=== PATIENT | male | born 1965 | race Caucasian/White ===

== ENCOUNTER 2016-09-18 00:49 | Inpatient (IN) | payer OTHER ==
[~2016-09-18] VITALS: Ht 175.3 cm; Wt 84.9 kg
[~2016-09-18 00:49] MED LIST: ABILIFY10 MG PO; ABILIFY2 MG PO; ACAMPROSATE CA333 MG PO; ACTOS45 MG PO; AMARYL4 MG PO; ANTABUSE250 MG PO; ATIVAN1 MG PO; BUSPAR10 MG PO; CAMPRAL333 MG PO; COUMADIN,JANTOVE5 MG PO; COUMADIN5 M1 PO; COUMADIN5 MG PO; Coumadin dosing per PO; DEPAKOTE ER (E500 MG PO; DEPAKOTE500 MG PO; DESYREL 150 MG150 MG PO; DESYREL100 MG PO; DESYREL300 MG PO; DIABETA,MICRONAS5 MG PO; DISULFIRAM250 MG PO; Depakote ER (Extende PO; Diabeta,Micronase PO; EFFEXOR XR150 MG PO; ENOXAPARIN100 MG/1 M SC; FLEXERIL10 MG PO; FUROSEMIDE40 MG PO; GEODON80 MG PO; GLIPIZIDE5 MG PO; HYGROTON25 MG PO; LANTUS 3 M100 UNITS/ SC; LANTUS 3 M100 UNITS1 SC; LASIX40 MG PO; LEVEMIR FL100 UNITS/ SC; LEXAPRO20 MG PO; LISINOPRIL-HCT1 EACH PO; LISINOPRIL10 MG PO; LISINOPRIL20 MG PO; LOPRESSOR25 MG PO; LOVENOX80 MG/0.8 SC; METOPROLOL SUCC25 MG PO; MORPHINE SULFAT15 M1 PO; NEURONTIN100 MG PO; NOVOLIN 70100 UNIT/1 SQ; NOVOLOG MI100 UNIT/3 IV; NOVOLOG MI100 UNIT/M SC; NOVOLOG100 UNIT/2 SQ; ONGLYZA5 MG PO; OXYCODONE HCL5 M1 PO; PERCOCET 5/31 TABLET PO; SIMVASTATIN40 MG PO; SIMVASTATIN80 MG PO; SPECTAZOLE15 GM PO; THORAZINE25 MG PO; THORAZINE50 MG PO; TIZANIDINE HCL4 MG PO; TRAZODONE HCL100 MG PO; TRAZODONE HCL150 MG PO; Toprol XL PO; UNKNOWN MEDICATIONS; VENLAFAXINE HC150 M1 PO; VENLAFAXINE HCL75 M3 PO; WARFARIN SODIUM5 MG PO; WELLBUTRIN SR150 MG PO; WELLBUTRIN XL300 MG PO; Wellbutrin XL PO; ZESTRIL,PRINIVI10 M1 PO; ZESTRIL,PRINIVI10 MG PO; ZIPRASIDONE HCL80 MG PO; ZOCOR80 MG PO; Zocor PO
[2016-09-18 01:46] LABS: HEMATOCRIT 34.2 % (38.0-50.0); MCH 31.5 PG (29.0-34.0); MCV 87.5 FL (86-99); PLATELET COUNT 282 K/uL (156-360); RBC DIS.WIDTH-SD 40.7 % (39-53); RED BLOOD COUNT 3.91 M/uL (4.00-5.50); WHITE BLOOD COUNT 5.4 K/uL (4.1-10.2)
[2016-09-18 01:53] LABS: CHLORIDE 107 mEq/L (99-109); POTASSIUM 3.4 mEq/L (3.7-5.4); SODIUM 143 mEq/L (136-147)
[2016-09-18 01:56] LABS: GLUCOSE 242 mg/dL (70-99)
[2016-09-18 01:57] LABS: ANION GAP 17 MEQ/L (2-14)
[2016-09-18 01:58] LABS: SERUM ETHYL ALCOHOL 250 mg/dL
[2016-09-18 01:59] LABS: GFR ESTIMATE (CALCULATED) > 59 mL/min/
[2016-09-18 02:01] LABS: UREA NITROGEN (BUN) 16 mg/dL (9-23)
[2016-09-18 02:02] LABS: SALICYLATE < 5.0 MG/DL (15-30)
[2016-09-18] MEDS ORDERED: ZYPREXA10 MG PO (11:01)
[2016-09-18] MEDS ORDERED: EFFEXOR XR150 MG PO (11:01)
[2016-09-18] MEDS ORDERED: TRAZODONE HCL150 MG PO (11:02)
[2016-09-18] MEDS ORDERED: LISINOPRIL-HCT1 EACH PO (11:02)
[2016-09-18] MEDS ORDERED: TRESIBA FL100 UNIT/1 SC (11:02)
[2016-09-18] MEDS ORDERED: GLIMEPIRIDE4 MG PO (11:02)
[2016-09-18 14:22] LABS: AMPHETAMINE NEGATIVE (500 ng/mL); BARBITURATES NEGATIVE (200 ng/mL); BENZODIAZEPINES PRESUMPTIVE POSITIVE (150 ng/mL); COCAINE NEGATIVE (150 ng/mL); INTERNAL CONTROLS VALID? YES; METHADONE NEGATIVE (200 ng/mL); METHAMPHETAMINE NEGATIVE (500 ng/mL); OPIATES (MORPHINE) NEGATIVE (100 ng/mL); OXYCODONE NEGATIVE (100 ng/mL); PHENCYCLIDINE NEGATIVE (25 ng/mL); PROPOXYPHENE NEGATIVE (300 ng/mL); THC CANNABINOIDS NEGATIVE (50 ng/mL); TRICYCLIC ANTIDEPRESSANTS NEGATIVE (300 ng/mL)
[2016-09-18 14:23] LABS: ADD MEDTOX COMMENT Y
[2016-09-18 14:31] LABS: ADD MIUA? YES; BILIRUBIN NEGATIVE; BLOOD SMALL; COLOR YELLOW ((YELLOW)); GLUCOSE (STRIP) >=1000; KETONES TRACE; LEUKOCYTES NEGATIVE; NITRITE NEGATIVE; PH, URINE 5.5 (5-8); PROTEIN (STRIP) 100; SPECIFIC GRAVITY 1.018 (1.000-1.030); UROBILINOGEN 0.2 MG/DL (0.2-1.0)
[2016-09-18 14:57] LABS: EPITHELIAL CELLS 1+; MUCUS 1+; RED BLOOD CELLS 0-5 /HPF (0-5)
[2016-09-18 14:58] LABS: BACTERIA NONE SEEN; CASTS NONE SEEN /LPF; CRYSTALS NONE SEEN; UCUL ADDED? NO; WHITE BLOOD CELLS 0-5 /HPF (0-5)
[2016-09-18 15:02] LABS: BENZODIAZEPINES QUANT VALUE 0 NG/ML
[2016-09-18 15:15] LABS: BENZODIAZEPINES, URINE SCREEN Negative (200 ng/mL)
[2016-09-18 16:38] VITALS: BP 143/85
[2016-09-18 18:20] VITALS: BP 143/85
[2016-09-18 22:22] LABS: POINT-OF-CARE METER ID UU13113830; POINT-OF-CARE USER ID 611041309
[2016-09-19 06:21] LABS: POINT-OF-CARE METER ID UU13113830; POINT-OF-CARE USER ID ENVTLS63
[2016-09-19 06:45] LABS: POINT-OF-CARE METER ID UU13113830; POINT-OF-CARE USER ID ENVTLS63
[2016-09-19 07:45] VITALS: BP 143/73
[2016-09-19 11:32] LABS: POINT-OF-CARE METER ID UU13113830
[2016-09-19 15:20] VITALS: BP 158/72
[2016-09-19 15:56] LABS: POINT-OF-CARE METER ID UU13113830; POINT-OF-CARE USER ID BHSSMG
[2016-09-19 20:58] LABS: POINT-OF-CARE METER ID UU13113830; POINT-OF-CARE USER ID BHSSMG
[2016-09-20 06:25] LABS: POINT-OF-CARE METER ID UU13113830
[2016-09-20 07:51] VITALS: BP 168/77
[2016-09-20 12:12] LABS: POINT-OF-CARE METER ID UU13113830; POINT-OF-CARE USER ID HRSENV50
[2016-09-20 16:00] VITALS: BP 149/78
[2016-09-20 16:58] LABS: POINT-OF-CARE METER ID UU13113830; POINT-OF-CARE USER ID BHSMEW
[2016-09-20 20:46] LABS: POINT-OF-CARE METER ID UU13113830; POINT-OF-CARE USER ID BHSMEW
[2016-09-21 06:23] LABS: POINT-OF-CARE METER ID UU13113830
[2016-09-21 07:40] VITALS: BP 156/75
[2016-09-21 11:46] LABS: POINT-OF-CARE METER ID UU13113830
[2016-09-21 15:30] VITALS: BP 109/53
[2016-09-21 16:27] LABS: POINT-OF-CARE METER ID UU13113830; POINT-OF-CARE USER ID BHSLRM
[2016-09-21 21:16] LABS: POINT-OF-CARE METER ID UU13113830; POINT-OF-CARE USER ID BHSLRM
[2016-09-22 06:33] LABS: POINT-OF-CARE METER ID UU13113830; POINT-OF-CARE USER ID BHSSMG
[2016-09-22 07:41] VITALS: BP 127/76
[2016-09-22 12:23] LABS: POINT-OF-CARE METER ID UU13113830; POINT-OF-CARE USER ID BHSTSA
[2016-09-22 15:30] VITALS: BP 115/71
[2016-09-22 17:32] LABS: POINT-OF-CARE METER ID UU13113830; POINT-OF-CARE USER ID BHSTSA
[2016-09-22 21:19] LABS: POINT-OF-CARE METER ID UU13113830
[2016-09-23 06:14] LABS: POINT-OF-CARE METER ID UU13113830; POINT-OF-CARE USER ID ENVTLS63
[2016-09-23 07:51] VITALS: BP 151/68
[2016-09-23] MEDS ORDERED: LEVEMIR100 UNIT/2 SC (09:51)
[2016-09-23] MEDS ORDERED: DESYREL 150 MG150 MG PO (09:51)
[2016-09-23 11:59] LABS: POINT-OF-CARE METER ID UU13113830
== END 2016-09-23 14:22 | disposition other institution (70) | DRG 885 ==
LOC: EME → EDBD 00:49 → EME 15:52 → EDOF 16:30 → 1WEST 16:30
PROVIDERS: Emergency Medicine; Psychiatry & Neurology Psychiatry
DX: F33.9 Major depressive disorder, recurrent, unspecified (principal); R45.851 Suicidal ideations; F60.0 Paranoid personality disorder; F10.229 Alcohol dependence with intoxication, unspecified; I10 Essential (primary) hypertension; E11.9 Type 2 diabetes mellitus without complications; M54.9 Dorsalgia, unspecified; G89.29 Other chronic pain; F17.210 Nicotine dependence, cigarettes, uncomplicated
CPT/HCPCS: 71020; 80048; 81003; 82948; 84999; 85027; 90837; 97150 GO; 97165 GO; 97530 GO; 99281; 99285; G0480; J1630; J2060

== ENCOUNTER 2016-12-23 16:25 | Emergency (ER) | payer OTHER ==
[~2016-12-23] VITALS: Ht 175.3 cm; Wt 81.8 kg
[~2016-12-23 16:25] MED LIST changes: +GLIMEPIRIDE4 MG PO; +LEVEMIR100 UNIT/2 SC; +TRESIBA FL100 UNIT/1 SC; +ZYPREXA10 MG PO
[2016-12-23 16:28] VITALS: BP 120/78
[2016-12-23 17:06] LABS: EOSINOPHIL (%) 3.4 % (0-5); EOSINOPHIL COUNT 0.2 K/uL (0-0.3); HEMATOCRIT 31.5 % (38.0-50.0); IMMATURE GRANULOCYTE (%) 1.3 % (0.0-0.7); IMMATURE GRANULOCYTE COUNT 0.1 K/uL; INSTRUMENT ABS NEUTROPHIL CT 3.4 K/uL; LYMPHOCYTE COUNT 2.3 K/uL (1.0-2.8); MCH 30.9 PG (29.0-34.0); MCHC 34.6 G/DL (30.0-36.0); MCV 89.2 FL (86-99); MEAN PLAT.VOLUME 9.3 uM^3 (9.0-12.4); MONOCYTE (%) 5.8 % (3-12); MONOCYTE COUNT 0.4 K/uL (0-0.8); NEUTROPHIL (%) 52.7 % (45-76); NEUTROPHIL COUNT 3.4 K/uL (1.8-6.4); PLATELET COUNT 388 K/uL (156-360); RBC DIS.WIDTH-CV 12.8 % (11.8-14.6); RBC DIS.WIDTH-SD 41.4 % (39-53); RED BLOOD COUNT 3.53 M/uL (4.00-5.50); WHITE BLOOD COUNT 6.4 K/uL (4.1-10.2)
[2016-12-23 17:27] LABS: AMYLASE 103 IU/L (1-118); CHLORIDE 106 mEq/L (99-109); POTASSIUM 4.5 mEq/L (3.7-5.4); SODIUM 138 mEq/L (136-147)
[2016-12-23 17:29] LABS: GLUCOSE 201 mg/dL (70-99)
[2016-12-23 17:30] LABS: ANION GAP 14 MEQ/L (2-14)
[2016-12-23 17:32] LABS: SERUM ETHYL ALCOHOL 248 mg/dL
[2016-12-23 17:33] LABS: GFR ESTIMATE (CALCULATED) 57 mL/min/
[2016-12-23 17:34] LABS: UREA NITROGEN (BUN) 16 mg/dL (9-23)
[2016-12-23 17:36] LABS: LIPASE 73 U/L (1.0-51.0)
[2016-12-23 18:48] LABS: ADD MIUA? NO; BILIRUBIN NEGATIVE; BLOOD NEGATIVE; COLOR COLORLESS ((YELLOW)); GLUCOSE (STRIP) 150; KETONES NEGATIVE; LEUKOCYTES NEGATIVE; NITRITE NEGATIVE; PROTEIN (STRIP) NEGATIVE; SPECIFIC GRAVITY 1.013 (1.000-1.030); UCUL ADDED? NO; UROBILINOGEN 0.2 MG/DL (0.2-1.0)
[2016-12-23 19:01] LABS: AMPHETAMINE NEGATIVE (500 ng/mL); BARBITURATES NEGATIVE (200 ng/mL); BENZODIAZEPINES NEGATIVE (150 ng/mL); COCAINE NEGATIVE (150 ng/mL); INTERNAL CONTROLS VALID? YES; METHADONE NEGATIVE (200 ng/mL); METHAMPHETAMINE NEGATIVE (500 ng/mL); OPIATES (MORPHINE) NEGATIVE (100 ng/mL); OXYCODONE NEGATIVE (100 ng/mL); PHENCYCLIDINE NEGATIVE (25 ng/mL); PROPOXYPHENE NEGATIVE (300 ng/mL); THC CANNABINOIDS NEGATIVE (50 ng/mL); TRICYCLIC ANTIDEPRESSANTS NEGATIVE (300 ng/mL)
[2016-12-23] MEDS ORDERED: BACLOFEN10 MG PO (19:23)
[2016-12-23] MEDS ORDERED: MOTRIN600 MG PO (19:23)
== END 2016-12-23 20:02 | disposition home or self-care (01) ==
LOC: EME
PROVIDERS: Emergency Medicine
PROC: 3E0234Z Introduction of Serum, Toxoid and Vaccine into Muscle, Percutaneous Approach (ICD-10-PCS; principal; 2016-12-23)
DX: F10.129 Alcohol abuse with intoxication, unspecified (principal); Y90.8 Blood alcohol level of 240 mg/100 ml or more; M54.9 Dorsalgia, unspecified; S00.01XA Abrasion of scalp, initial encounter; W10.8XXA Fall (on) (from) other stairs and steps, initial encounter; M54.2 Cervicalgia; R10.9 Unspecified abdominal pain; S60.511A Abrasion of right hand, initial encounter; Z23 Encounter for immunization; I25.10 Atherosclerotic heart disease of native coronary artery without angina pectoris; E11.9 Type 2 diabetes mellitus without complications; Z86.711 Personal history of pulmonary embolism; F17.200 Nicotine dependence, unspecified, uncomplicated; Z79.84 Long term (current) use of oral hypoglycemic drugs
CPT/HCPCS: 70450; 71010; 72125; 72129; 72132; 74177; 80048; 81003; 82150; 83690; 85025; 86850; 86900; 86901; 93005; 99281; 99285; G0480; J0690; J1885

== ENCOUNTER 2017-01-07 23:30 | Inpatient (IN) | payer OTHER ==
[~2017-01-07] VITALS: Ht 175.3 cm; Wt 81.5 kg
[~2017-01-07 23:30] MED LIST changes: +BACLOFEN10 MG PO; +MOTRIN600 MG PO
[2017-01-08 00:46] LABS: HEMATOCRIT 32.5 % (38.0-50.0); MCH 31.1 PG (29.0-34.0); MCHC 35.1 G/DL (30.0-36.0); MCV 88.6 FL (86-99); RBC DIS.WIDTH-CV 13.3 % (11.8-14.6); RBC DIS.WIDTH-SD 43.5 % (39-53); RED BLOOD COUNT 3.67 M/uL (4.00-5.50); WHITE BLOOD COUNT 5.6 K/uL (4.1-10.2)
[2017-01-08 00:52] LABS: CHLORIDE 104 mEq/L (99-109); POTASSIUM 3.7 mEq/L (3.7-5.4); SODIUM 138 mEq/L (136-147)
[2017-01-08 00:53] LABS: MAGNESIUM 2.3 mg/dL (1.3-2.7)
[2017-01-08 00:54] LABS: GLUCOSE 194 mg/dL (70-99)
[2017-01-08 01:03] LABS: GFR ESTIMATE (CALCULATED) 20 mL/min/
[2017-01-08 01:04] LABS: UREA NITROGEN (BUN) 30 mg/dL (9-23)
[2017-01-08 01:05] LABS: TROP-I INTERPRETATION NEGATIVE; TROPONIN-I 0.02 ng/mL (0.0-0.30)
[2017-01-08 01:23] LABS: MEAN PLAT.VOLUME 9.3 uM^3 (9.0-12.4); PLATELET CLUMPS PRESENT - PLATELET COUNT APPEARS ADQ.
[2017-01-08 01:24] LABS: PLATELET COUNT 268 K/uL (156-360)
[2017-01-08 01:37] LABS: ANION GAP 15 MEQ/L (2-14)
[2017-01-08 01:41] LABS: CREATINE KINASE 836 IU/L (1-294)
[2017-01-08 02:51] LABS: BILIRUBIN NEGATIVE; BLOOD NEGATIVE; COLOR YELLOW ((YELLOW)); GLUCOSE (STRIP) NEGATIVE; KETONES NEGATIVE; LEUKOCYTES NEGATIVE; NITRITE NEGATIVE; PROTEIN (STRIP) NEGATIVE; SPECIFIC GRAVITY 1.013 (1.000-1.030); UROBILINOGEN 0.2 MG/DL (0.2-1.0)
[2017-01-08 02:52] LABS: ADD MIUA? NO
[2017-01-08 07:28] LABS: POINT-OF-CARE METER ID UU14100415
[2017-01-08 09:15] LABS: HEMATOCRIT 30.1 % (38.0-50.0); MCH 30.7 PG (29.0-34.0); MCHC 33.6 G/DL (30.0-36.0); MCV 91.5 FL (86-99); MEAN PLAT.VOLUME 9.7 uM^3 (9.0-12.4); PLATELET COUNT 244 K/uL (156-360); RBC DIS.WIDTH-CV 13.6 % (11.8-14.6); RBC DIS.WIDTH-SD 46.2 % (39-53); RED BLOOD COUNT 3.29 M/uL (4.00-5.50); WHITE BLOOD COUNT 4.7 K/uL (4.1-10.2)
[2017-01-08 11:14] LABS: AMPHETAMINES QUANT VALUE 0 NG/ML; BARBITUATES QUANT VALUE 0 NG/ML; BENZODIAZEPINES, URINE SCREEN POSITIVE (200 ng/mL); MARIJUANA QUANT VALUE 0 NG/ML; PHENCYCLIDINE QUANT VALUE 0 NG/ML
[2017-01-08 11:26] LABS: POINT-OF-CARE METER ID UU14100415
[2017-01-08] MEDS ORDERED: AMBIEN10 MG PO (13:14)
[2017-01-08] MEDS ORDERED: LITHIUM CARBON300 M1 PO (13:15)
[2017-01-08] MEDS ORDERED: REVIA50 MG PO (13:15)
[2017-01-08] MEDS ORDERED: TRESIBA FL100 UNIT/1 SC (13:16)
[2017-01-08] MEDS ORDERED: ANTABUSE250 MG PO (13:17)
[2017-01-08 16:25] LABS: POINT-OF-CARE METER ID UU14100415
[2017-01-08 20:00] VITALS: BP 135/68
[2017-01-08 21:06] LABS: ALKALINE PHOSPHATASE 69 IU/L (3-129); ANION GAP 6 MEQ/L (2-14); CHLORIDE 112 MEQ/L (99-109); GLUCOSE 135 mg/dL (70-99); POTASSIUM 4.1 MEQ/L (3.7-5.4); SAMPLE HEMOLYSIS CHECK 0; SAMPLE ICTERIC CHECK 0; SAMPLE LIPEMIA CHECK 0; SODIUM 140 MEQ/L (136-147); TOTAL BILIRUBIN 0.3 MG/DL (0.0-1.0); UREA NITROGEN (BUN) 22 mg/dL (9-23)
[2017-01-08 21:07] LABS: GFR ESTIMATE (CALCULATED) 52 mL/min/
[2017-01-09 00:11] VITALS: BP 134/69
[2017-01-09 04:40] VITALS: BP 137/62
[2017-01-09 06:53] VITALS: BP 135/63
[2017-01-09 11:11] LABS: POINT-OF-CARE METER ID UU14174216
[2017-01-09 12:27] VITALS: BP 147/70
[2017-01-09 16:35] VITALS: BP 145/66
[2017-01-09 19:20] VITALS: BP 135/81
[2017-01-10 00:20] VITALS: BP 160/73
[2017-01-10 04:30] VITALS: BP 130/56
[2017-01-10 06:23] LABS: HEMATOCRIT 28.1 % (38.0-50.0); MCH 30.4 PG (29.0-34.0); MCHC 32.7 G/DL (30.0-36.0); MCV 92.7 FL (86-99); MEAN PLAT.VOLUME 9.5 uM^3 (9.0-12.4); PLATELET COUNT 205 K/uL (156-360); RBC DIS.WIDTH-CV 13.9 % (11.8-14.6); RBC DIS.WIDTH-SD 47.3 % (39-53); RED BLOOD COUNT 3.03 M/uL (4.00-5.50); WHITE BLOOD COUNT 4.5 K/uL (4.1-10.2)
[2017-01-10 06:46] LABS: ANION GAP 6 MEQ/L (2-14); CHLORIDE 114 MEQ/L (99-109); CREATINE KINASE 184 IU/L (1-294); GFR ESTIMATE (CALCULATED) > 59 mL/min/; GLUCOSE 128 mg/dL (70-99); POTASSIUM 3.9 MEQ/L (3.7-5.4); SAMPLE HEMOLYSIS CHECK 0; SAMPLE ICTERIC CHECK 0; SAMPLE LIPEMIA CHECK 0; SODIUM 142 MEQ/L (136-147); UREA NITROGEN (BUN) 19 mg/dL (9-23)
[2017-01-10 07:20] VITALS: BP 154/73
[2017-01-10 07:41] LABS: POINT-OF-CARE METER ID UU14174216; POINT-OF-CARE USER ID NUTSLF44
[2017-01-10 11:06] VITALS: BP 140/67
[2017-01-10 12:02] LABS: POINT-OF-CARE USER ID NUTSLF44
[2017-01-10] MEDS ORDERED: THIAMINE HCL100 MG PO (14:56)
[2017-01-10] MEDS ORDERED: MULTI-VITAMIN1 EAC4 PO (14:56)
[2017-01-10] MEDS ORDERED: FOLIC ACID1 MG PO (14:56)
[2017-01-10 15:39] VITALS: BP 165/72
[2017-01-10 16:48] LABS: POINT-OF-CARE USER ID NUTSLF44
== END 2017-01-10 19:12 | disposition home or self-care (01) | DRG 683 ==
LOC: EME 23:30 → 4EAST 01-08 06:14 → EDOF 01-08 06:14 → 4EAST 01-08 20:04
PROVIDERS: Hospitalist; Internal Medicine; Physician Assistant
DX: N17.9 Acute kidney failure, unspecified (principal); E11.22 Type 2 diabetes mellitus with diabetic chronic kidney disease; I12.9 Hypertensive chronic kidney disease with stage 1 through stage 4 chronic kidney disease, or unspecified chronic kidney disease; N18.3 Chronic kidney disease, stage 3 (moderate); F10.20 Alcohol dependence, uncomplicated; R07.89 Other chest pain; M62.82 Rhabdomyolysis; F60.3 Borderline personality disorder; F32.9 Major depressive disorder, single episode, unspecified; W10.9XXA Fall (on) (from) unspecified stairs and steps, initial encounter
CPT/HCPCS: 71020; 80048; 80053; 80306 90; 81003; 82550; 82948; 83735; 84484; 85027; 93005; 93306; 99281; 99285; G0480; J1644; J1815; J3411; J7030

== ENCOUNTER 2017-01-20 11:45 | Emergency (ER) | payer OTHER ==
[~2017-01-20] VITALS: Ht 175.3 cm; Wt 82.9 kg
[~2017-01-20 11:45] MED LIST changes: +AMBIEN10 MG PO; +FOLIC ACID1 MG PO; +LITHIUM CARBON300 M1 PO; +MULTI-VITAMIN1 EAC4 PO; +REVIA50 MG PO; +THIAMINE HCL100 MG PO
[2017-01-20 12:57] LABS: ADD MIUA? NO; BILIRUBIN NEGATIVE; BLOOD NEGATIVE; COLOR STRAW ((YELLOW)); GLUCOSE (STRIP) NEGATIVE; KETONES NEGATIVE; LEUKOCYTES NEGATIVE; NITRITE NEGATIVE; PROTEIN (STRIP) 30; SPECIFIC GRAVITY 1.005 (1.000-1.030); UROBILINOGEN 0.2 MG/DL (0.2-1.0)
[2017-01-20 13:06] LABS: AMPHETAMINE NEGATIVE (500 ng/mL); BARBITURATES NEGATIVE (200 ng/mL); BENZODIAZEPINES NEGATIVE (150 ng/mL); COCAINE NEGATIVE (150 ng/mL); INTERNAL CONTROLS VALID? YES; METHADONE NEGATIVE (200 ng/mL); METHAMPHETAMINE NEGATIVE (500 ng/mL); OPIATES (MORPHINE) NEGATIVE (100 ng/mL); OXYCODONE NEGATIVE (100 ng/mL); PHENCYCLIDINE NEGATIVE (25 ng/mL); PROPOXYPHENE NEGATIVE (300 ng/mL); THC CANNABINOIDS NEGATIVE (50 ng/mL); TRICYCLIC ANTIDEPRESSANTS NEGATIVE (300 ng/mL)
[2017-01-20 13:25] LABS: EOSINOPHIL (%) 3.6 % (0-5); EOSINOPHIL COUNT 0.3 K/uL (0-0.3); HEMATOCRIT 34.2 % (38.0-50.0); IMMATURE GRANULOCYTE (%) 0.5 % (0.0-0.7); INSTRUMENT ABS NEUTROPHIL CT 5.1 K/uL; LYMPHOCYTE COUNT 1.9 K/uL (1.0-2.8); MCH 31.1 PG (29.0-34.0); MCHC 34.8 G/DL (30.0-36.0); MCV 89.3 FL (86-99); MEAN PLAT.VOLUME 9.4 uM^3 (9.0-12.4); MONOCYTE COUNT 0.7 K/uL (0-0.8); NEUTROPHIL (%) 62.8 % (45-76); NEUTROPHIL COUNT 5.1 K/uL (1.8-6.4); RBC DIS.WIDTH-CV 14.1 % (11.8-14.6); RBC DIS.WIDTH-SD 45.8 % (39-53)
[2017-01-20 13:26] LABS: PLATELET COUNT 413 K/uL (156-360); RED BLOOD COUNT 3.83 M/uL (4.00-5.50); WHITE BLOOD COUNT 8.2 K/uL (4.1-10.2)
[2017-01-20 13:36] LABS: CHLORIDE 108 mEq/L (99-109); SODIUM 138 mEq/L (136-147)
[2017-01-20 13:38] LABS: GLUCOSE 123 mg/dL (70-99)
[2017-01-20 13:39] LABS: ANION GAP 13 MEQ/L (2-14)
[2017-01-20 13:41] LABS: SERUM ETHYL ALCOHOL 100 mg/dL
[2017-01-20 13:42] LABS: GFR ESTIMATE (CALCULATED) 49 mL/min/
[2017-01-20 13:43] LABS: UREA NITROGEN (BUN) 28 mg/dL (9-23)
[2017-01-20 14:49] VITALS: BP 155/75
== END 2017-01-20 14:50 | disposition home or self-care (01) ==
LOC: EME 11:45
PROVIDERS: Emergency Medicine
DX: F41.9 Anxiety disorder, unspecified (principal); F33.9 Major depressive disorder, recurrent, unspecified; F10.20 Alcohol dependence, uncomplicated; Y90.5 Blood alcohol level of 100-119 mg/100 ml; I10 Essential (primary) hypertension; E11.9 Type 2 diabetes mellitus without complications; Z79.4 Long term (current) use of insulin; Z86.711 Personal history of pulmonary embolism; F17.200 Nicotine dependence, unspecified, uncomplicated
CPT/HCPCS: 80048; 81003; 85025; 90837; 99281; 99285; G0480

== ENCOUNTER 2017-09-22 00:17 | Emergency (ER) | payer OTHER ==
[~2017-09-22] VITALS: Ht 175.3 cm; Wt 78.4 kg
[2017-09-22 00:56] LABS: HEMATOCRIT 32.4 % (38.0-50.0); HEMOGLOBIN 11.9 G/DL (12.5-16.6); MCHC 36.7 G/DL (30.0-36.0); MCV 87.1 FL (86-99); PLATELET COUNT 206 K/uL (156-360); RBC DIS.WIDTH-CV 12.7 % (11.8-14.6); RBC DIS.WIDTH-SD 40.5 % (39-53); RED BLOOD COUNT 3.72 M/uL (4.00-5.50); WHITE BLOOD COUNT 6.4 K/uL (4.1-10.2)
[2017-09-22 01:04] LABS: ALBUMIN 3.8 g/dL (3.2-4.8); CHLORIDE 98 mEq/L (99-109); POTASSIUM 3.8 mEq/L (3.7-5.4)
[2017-09-22 01:05] LABS: SODIUM 134 mEq/L (136-147)
[2017-09-22 01:07] LABS: GLUCOSE 242 mg/dL (70-99); TOTAL PROTEIN 7.5 g/dL (6.4-8.3)
[2017-09-22 01:09] LABS: TOTAL BILIRUBIN 0.5 mg/dL (0.0-1.0)
[2017-09-22 01:10] LABS: ALKALINE PHOSPHATASE 87 IU/L (3-129); CREATININE 1.5 mg/dL (0.6-1.3); GFR ESTIMATE (CALCULATED) 52 mL/min/ (58.99-99999)
[2017-09-22 01:12] LABS: AST (GOT) 109 IU/L (2-34); UREA NITROGEN (BUN) 22 mg/dL (9-23)
[2017-09-22 01:13] LABS: ALT (GPT) 95 IU/L (3-49)
[2017-09-22 01:14] LABS: LIPASE 47 U/L (1.0-51.0)
[2017-09-22] MEDS ORDERED: ATIVAN2 MG PO (01:46)
[2017-09-22 03:49] VITALS: BP 168/84
== END 2017-09-22 03:52 | disposition home or self-care (01) ==
LOC: EME 00:17
PROVIDERS: Emergency Medicine Emergency Medical Services
DX: F10.239 Alcohol dependence with withdrawal, unspecified (principal); R11.2 Nausea with vomiting, unspecified; E86.0 Dehydration; E11.65 Type 2 diabetes mellitus with hyperglycemia; E11.22 Type 2 diabetes mellitus with diabetic chronic kidney disease; I12.9 Hypertensive chronic kidney disease with stage 1 through stage 4 chronic kidney disease, or unspecified chronic kidney disease; N18.9 Chronic kidney disease, unspecified; I25.10 Atherosclerotic heart disease of native coronary artery without angina pectoris; F41.9 Anxiety disorder, unspecified; F32.9 Major depressive disorder, single episode, unspecified; F42.9 Obsessive-compulsive disorder, unspecified; F44.81 Dissociative identity disorder; F17.200 Nicotine dependence, unspecified, uncomplicated; Z79.84 Long term (current) use of oral hypoglycemic drugs; Z86.711 Personal history of pulmonary embolism; Z88.5 Allergy status to narcotic agent; Z88.8 Allergy status to other drugs, medicaments and biological substances
CPT/HCPCS: 80053; 83690; 85027; 85610; 99281; 99285; J2060; J3411; J3475; J7042; J7050

== ENCOUNTER 2017-10-23 20:25 | Emergency (ER) | payer OTHER ==
[~2017-10-23] VITALS: Ht 175.3 cm; Wt 83.9 kg
[~2017-10-23 20:25] MED LIST changes: +ATIVAN2 MG PO
[2017-10-23 21:22] LABS: HEMOGLOBIN 10.2 G/DL (12.5-16.6); MCH 31.6 PG (29.0-34.0); MCHC 35.2 G/DL (30.0-36.0); MCV 89.8 FL (86-99); PLATELET COUNT 218 K/uL (156-360); RBC DIS.WIDTH-CV 12.3 % (11.8-14.6); RBC DIS.WIDTH-SD 40.8 % (39-53); RED BLOOD COUNT 3.23 M/uL (4.00-5.50); WHITE BLOOD COUNT 5.1 K/uL (4.1-10.2)
[2017-10-23 21:32] LABS: ALBUMIN 2.8 g/dL (3.2-4.8); CHLORIDE 111 mEq/L (99-109); MAGNESIUM 1.5 mg/dL (1.3-2.7); POTASSIUM 3.7 mEq/L (3.7-5.4); SODIUM 140 mEq/L (136-147)
[2017-10-23 21:34] LABS: GLUCOSE 180 mg/dL (70-99); TOTAL PROTEIN 5.6 g/dL (6.4-8.3)
[2017-10-23 21:36] LABS: TOTAL BILIRUBIN 0.2 mg/dL (0.0-1.0)
[2017-10-23 21:38] LABS: ALKALINE PHOSPHATASE 68 IU/L (3-129); CREATININE 1.6 mg/dL (0.6-1.3); GFR ESTIMATE (CALCULATED) 48 mL/min/ (58.99-99999); PHOSPHORUS 2.6 mg/dL (2.5-4.9)
[2017-10-23 21:39] LABS: UREA NITROGEN (BUN) 15 mg/dL (9-23)
[2017-10-23 21:40] LABS: AST (GOT) 14 IU/L (2-34)
[2017-10-23 21:41] LABS: ALT (GPT) 16 IU/L (3-49); LIPASE 24 U/L (1.0-51.0)
[2017-10-23 21:43] LABS: TROP-I INTERPRETATION NEGATIVE; TROPONIN-I 0.01 ng/mL (0.0-0.30)
[2017-10-23 21:59] LABS: APPEARANCE CLEAR ((CLEAR)); BILIRUBIN NEGATIVE; BLOOD NEGATIVE; COLOR STRAW ((YELLOW)); GLUCOSE (STRIP) >=500; KETONES NEGATIVE; LEUKOCYTES NEGATIVE; NITRITE NEGATIVE; PROTEIN (STRIP) 30; UROBILINOGEN 0.2 MG/DL (0.2-1.0)
[2017-10-23 22:09] LABS: AMPHETAMINE NEGATIVE (500 ng/mL); BARBITURATES NEGATIVE (200 ng/mL); BENZODIAZEPINES NEGATIVE (150 ng/mL); BUPRENORPHINE NEGATIVE (10 ng/mL); COCAINE NEGATIVE (150 ng/mL); METHADONE NEGATIVE (200 ng/mL); METHAMPHETAMINE NEGATIVE (500 ng/mL); OPIATES (MORPHINE) NEGATIVE (100 ng/mL); OXYCODONE NEGATIVE (100 ng/mL); PHENCYCLIDINE NEGATIVE (25 ng/mL); PROPOXYPHENE NEGATIVE (300 ng/mL); THC CANNABINOIDS NEGATIVE (50 ng/mL); TRICYCLIC ANTIDEPRESSANTS PRESUMPTIVE POSITIVE (300 ng/mL)
[2017-10-23 23:20] VITALS: BP 192/91
== END 2017-10-23 23:21 | disposition home or self-care (01) ==
LOC: EME 20:25
PROVIDERS: Emergency Medicine
DX: R53.83 Other fatigue (principal); I10 Essential (primary) hypertension; E11.9 Type 2 diabetes mellitus without complications; I25.10 Atherosclerotic heart disease of native coronary artery without angina pectoris; F42.9 Obsessive-compulsive disorder, unspecified; F41.9 Anxiety disorder, unspecified; F32.9 Major depressive disorder, single episode, unspecified; F17.200 Nicotine dependence, unspecified, uncomplicated; F10.20 Alcohol dependence, uncomplicated; Z79.84 Long term (current) use of oral hypoglycemic drugs; Z79.4 Long term (current) use of insulin; Z86.711 Personal history of pulmonary embolism; Z88.5 Allergy status to narcotic agent; Z88.6 Allergy status to analgesic agent; Z88.8 Allergy status to other drugs, medicaments and biological substances
CPT/HCPCS: 70450; 71045; 80053; 80175 90; 80178; 81003; 82803; 83605; 83690; 83735; 83930; 84100; 84484; 85027; 87040; 93005; 99281; 99285; J7030

== ENCOUNTER 2017-10-27 17:40 | Inpatient (IN) | payer OTHER ==
[~2017-10-27] VITALS: Ht 182.9 cm; Wt 84.7 kg
[2017-10-27 18:04] LABS: HEMATOCRIT 30.7 % (38.0-50.0); MCH 31.5 PG (29.0-34.0); MCHC 35.8 G/DL (30.0-36.0); PLATELET COUNT 233 K/uL (156-360); RBC DIS.WIDTH-CV 12.1 % (11.8-14.6); RBC DIS.WIDTH-SD 38.7 % (39-53); RED BLOOD COUNT 3.49 M/uL (4.00-5.50); WHITE BLOOD COUNT 6.3 K/uL (4.1-10.2)
[2017-10-27 18:15] LABS: ALBUMIN 3.3 g/dL (3.2-4.8)
[2017-10-27 18:16] LABS: CHLORIDE 102 mEq/L (99-109); POTASSIUM 3.7 mEq/L (3.7-5.4)
[2017-10-27 18:17] LABS: SODIUM 132 mEq/L (136-147)
[2017-10-27 18:18] LABS: GLUCOSE 330 mg/dL (70-99)
[2017-10-27 18:19] LABS: TOTAL PROTEIN 6.5 g/dL (6.4-8.3)
[2017-10-27 18:20] LABS: TOTAL BILIRUBIN 0.2 mg/dL (0.0-1.0)
[2017-10-27 18:21] LABS: ALKALINE PHOSPHATASE 71 IU/L (3-129); SERUM ETHYL ALCOHOL 304 mg/dL
[2017-10-27 18:22] LABS: CREATININE 1.7 mg/dL (0.6-1.3); GFR ESTIMATE (CALCULATED) 45 mL/min/ (58.99-99999)
[2017-10-27 18:23] LABS: UREA NITROGEN (BUN) 18 mg/dL (9-23)
[2017-10-27 18:24] LABS: AST (GOT) 29 IU/L (2-34)
[2017-10-27 18:25] LABS: ALT (GPT) 22 IU/L (3-49)
[2017-10-27 21:07] LABS: APPEARANCE CLEAR ((CLEAR)); BILIRUBIN NEGATIVE; BLOOD NEGATIVE; COLOR STRAW ((YELLOW)); GLUCOSE (STRIP) >=500; KETONES NEGATIVE; LEUKOCYTES NEGATIVE; NITRITE NEGATIVE; PROTEIN (STRIP) 30; SPECIFIC GRAVITY 1.005 (1.000-1.030); UROBILINOGEN 0.2 MG/DL (0.2-1.0)
[2017-10-27 21:21] LABS: AMPHETAMINE NEGATIVE (500 ng/mL); BARBITURATES NEGATIVE (200 ng/mL); BENZODIAZEPINES NEGATIVE (150 ng/mL); BUPRENORPHINE NEGATIVE (10 ng/mL); COCAINE NEGATIVE (150 ng/mL); METHADONE NEGATIVE (200 ng/mL); METHAMPHETAMINE NEGATIVE (500 ng/mL); OPIATES (MORPHINE) NEGATIVE (100 ng/mL); OXYCODONE NEGATIVE (100 ng/mL); PHENCYCLIDINE NEGATIVE (25 ng/mL); PROPOXYPHENE NEGATIVE (300 ng/mL); THC CANNABINOIDS NEGATIVE (50 ng/mL); TRICYCLIC ANTIDEPRESSANTS NEGATIVE (300 ng/mL)
[2017-10-28 05:06] VITALS: BP 154/78
[2017-10-29] MEDS ORDERED: AMLODIPINE BESY10 MG PO (16:44)
[2017-10-29] MEDS ORDERED: PANTOPRAZOLE SO40 MG PO (16:47)
[2017-10-29] MEDS ORDERED: NOVOLOG 10100 UNITS/ SC (16:48)
== END 2017-10-28 07:48 | disposition other institution (70) | DRG 885 ==
LOC: EME 17:40 → EDOF 10-28 02:45 → ENRESERV 10-28 03:50 → 1WEST 10-28 04:23 → ENRESERV 10-28 07:31 → CANRESERV 10-28 07:31 → 1WEST 10-28 07:48
PROVIDERS: Emergency Medicine; Psychiatry & Neurology Psychiatry
DX: F33.9 Major depressive disorder, recurrent, unspecified (principal); R45.851 Suicidal ideations; F42.9 Obsessive-compulsive disorder, unspecified; F10.229 Alcohol dependence with intoxication, unspecified; E11.65 Type 2 diabetes mellitus with hyperglycemia; F41.8 Other specified anxiety disorders; I10 Essential (primary) hypertension; F17.200 Nicotine dependence, unspecified, uncomplicated; I25.10 Atherosclerotic heart disease of native coronary artery without angina pectoris; Z91.14 Patient's other noncompliance with medication regimen
CPT/HCPCS: 80053; 81003; 82948; 85027; 90839; 99281; 99285; G0480; J2270; J7030

== ENCOUNTER 2017-10-28 07:24 | Observation (INO) | payer OTHER ==
[~2017-10-28] VITALS: Ht 175.3 cm; Wt 79.9 kg
[2017-10-28 07:55] VITALS: BP 188/84
[2017-10-28 08:36] LABS: HEMATOCRIT 32.5 % (38.0-50.0); HEMOGLOBIN 11.6 G/DL (12.5-16.6); MCH 31.9 PG (29.0-34.0); MCHC 35.7 G/DL (30.0-36.0); MCV 89.3 FL (86-99); PLATELET COUNT 234 K/uL (156-360); RBC DIS.WIDTH-CV 12.7 % (11.8-14.6); RBC DIS.WIDTH-SD 41.3 % (39-53); RED BLOOD COUNT 3.64 M/uL (4.00-5.50); WHITE BLOOD COUNT 4.9 K/uL (4.1-10.2)
[2017-10-28 08:48] LABS: MAGNESIUM 1.9 mg/dl (1.3-2.7)
[2017-10-28 08:49] LABS: ALBUMIN 3.4 G/DL (3.2-4.8); CHLORIDE 113 MEQ/L (99-109); POTASSIUM 4.1 MEQ/L (3.7-5.4); TOTAL BILIRUBIN 0.3 MG/DL (0.0-1.0)
[2017-10-28 08:53] LABS: SODIUM 146 MEQ/L (136-147)
[2017-10-28 08:54] LABS: ALKALINE PHOSPHATASE 66 IU/L (3-129); ALT (GPT) 18 IU/L (3-49); AST (GOT) 21 IU/L (2-34); GFR ESTIMATE (CALCULATED) > 59 mL/min/ (58.99-99999); LIPASE 47 U/L (1.0-51.0); TOTAL PROTEIN 6.4 G/DL (6.4-8.3); UREA NITROGEN (BUN) 16 mg/dL (9-23)
[2017-10-28 08:55] LABS: ACETAMINOPHEN (TYLENOL) < 10 MCG/ML (10-30); CREATININE 1.2 MG/DL (0.6-1.3); GLUCOSE 164 mg/dL (70-99); SALICYLATE < 3.0 MG/DL (15-30)
[2017-10-28 11:57] VITALS: BP 188/85
[2017-10-28 15:23] LABS: BENZODIAZEPINES, URINE SCREEN Negative (200 ng/mL)
[2017-10-28 16:01] VITALS: BP 174/87
[2017-10-28 18:29] LABS: TROP-I INTERPRETATION NEGATIVE; TROPONIN-I 0.02 ng/mL (0.0-0.30)
[2017-10-28 19:36] VITALS: BP 170/89
[2017-10-29] VITALS (7 sets, daily range): BP systolic 137–190; BP diastolic 72–86
[2017-10-29 01:20] LABS: TROP-I INTERPRETATION NEGATIVE; TROPONIN-I 0.02 ng/mL (0.0-0.30)
[2017-10-29 06:29] LABS: HEMATOCRIT 31.8 % (38.0-50.0); MCH 30.6 PG (29.0-34.0); MCHC 34.6 G/DL (30.0-36.0); MCV 88.6 FL (86-99); PLATELET COUNT 242 K/uL (156-360); RBC DIS.WIDTH-CV 12.4 % (11.8-14.6); RBC DIS.WIDTH-SD 40.7 % (39-53); RED BLOOD COUNT 3.59 M/uL (4.00-5.50)
[2017-10-29 07:12] LABS: ALBUMIN 3.2 G/DL (3.2-4.8); ALKALINE PHOSPHATASE 62 IU/L (3-129); ALT (GPT) 16 IU/L (3-49); AST (GOT) 18 IU/L (2-34); CHLORIDE 105 MEQ/L (99-109); CREATININE 1.3 MG/DL (0.6-1.3); GFR ESTIMATE (CALCULATED) > 59 mL/min/ (58.99-99999); POTASSIUM 4.1 MEQ/L (3.7-5.4); TOTAL BILIRUBIN 0.3 MG/DL (0.0-1.0); TOTAL PROTEIN 5.9 G/DL (6.4-8.3); UREA NITROGEN (BUN) 21 mg/dL (9-23)
[2017-10-29 07:22] LABS: GLUCOSE 250 mg/dL (70-99); SODIUM 137 MEQ/L (136-147)
[2017-10-29] MEDS ORDERED: AMLODIPINE BESY10 MG PO (16:44)
[2017-10-29] MEDS ORDERED: PANTOPRAZOLE SO40 MG PO (16:47)
[2017-10-29] MEDS ORDERED: NOVOLOG 10100 UNITS/ SC (16:48)
[2017-10-30 03:34] VITALS: BP 138/66
[2017-10-30 09:30] VITALS: BP 157/76
[2017-10-30 13:00] VITALS: BP 126/75
[2017-10-30 16:19] VITALS: BP 126/79
[2017-10-30 20:00] VITALS: BP 135/77
[2017-10-30 23:16] VITALS: BP 148/72
[2017-10-31 04:00] VITALS: BP 125/75
[2017-10-31 06:41] LABS: BASOPHIL (%) 0.3 % (0-1); EOSINOPHIL (%) 3.1 % (0-5); EOSINOPHIL COUNT 0.2 K/uL (0-0.3); HEMOGLOBIN 11.3 G/DL (12.5-16.6); IMMATURE GRANULOCYTE (%) 0.3 % (0.0-0.7); LYMPHOCYTE (%) 28.2 % (15-42); LYMPHOCYTE COUNT 1.6 K/uL (1.0-2.8); MCH 31.2 PG (29.0-34.0); MCHC 34.2 G/DL (30.0-36.0); MCV 91.2 FL (86-99); MONOCYTE COUNT 0.5 K/uL (0-0.8); NEUTROPHIL (%) 60.1 % (45-76); NEUTROPHIL COUNT 3.5 K/uL (1.8-6.4); PLATELET COUNT 254 K/uL (156-360); RBC DIS.WIDTH-CV 13.2 % (11.8-14.6); RBC DIS.WIDTH-SD 43.3 % (39-53); RED BLOOD COUNT 3.62 M/uL (4.00-5.50); WHITE BLOOD COUNT 5.8 K/uL (4.1-10.2)
[2017-10-31 07:00] LABS: CHLORIDE 111 MEQ/L (99-109); CREATININE 1.3 MG/DL (0.6-1.3); GFR ESTIMATE (CALCULATED) > 59 mL/min/ (58.99-99999); GLUCOSE 126 mg/dL (70-99); POTASSIUM 3.9 MEQ/L (3.7-5.4); SODIUM 141 MEQ/L (136-147); UREA NITROGEN (BUN) 24 mg/dL (9-23)
[2017-10-31 07:19] VITALS: BP 110/61
[2017-10-31 16:21] VITALS: BP 145/71
[2017-10-31 19:08] VITALS: BP 130/65
[2017-10-31] MEDS ORDERED: ASPIRIN81 M2 PO (22:18)
[2017-10-31] MEDS ORDERED: APRESOLINE10 MG PO (22:19)
[2017-10-31] MEDS ORDERED: GLUCOTROL5 MG PO (22:20)
[2017-10-31] MEDS ORDERED: AMBIEN5 MG PO (22:20)
== END 2017-10-31 20:53 ==
LOC: 5WEST 07:24 → ENRESERV 07:24 → 5WEST 07:55
PROVIDERS: Internal Medicine
DX: R07.9 Chest pain, unspecified (principal); R94.31 Abnormal electrocardiogram [ECG] [EKG]; F10.229 Alcohol dependence with intoxication, unspecified; Z76.5 Malingerer [conscious simulation]; F60.3 Borderline personality disorder; F60.0 Paranoid personality disorder; N17.9 Acute kidney failure, unspecified; E86.0 Dehydration; E11.65 Type 2 diabetes mellitus with hyperglycemia; I10 Essential (primary) hypertension; F33.9 Major depressive disorder, recurrent, unspecified; F42.9 Obsessive-compulsive disorder, unspecified; F41.9 Anxiety disorder, unspecified; G89.29 Other chronic pain; M54.9 Dorsalgia, unspecified; Z86.711 Personal history of pulmonary embolism; R45.851 Suicidal ideations; T42.6X4A Poisoning by other antiepileptic and sedative-hypnotic drugs, undetermined, initial encounter; T43.214A Poisoning by selective serotonin and norepinephrine reuptake inhibitors, undetermined, initial encounter; Z91.19 Patient's noncompliance with other medical treatment and regimen; Z82.49 Family history of ischemic heart disease and other diseases of the circulatory system; Z88.8 Allergy status to other drugs, medicaments and biological substances; Z79.84 Long term (current) use of oral hypoglycemic drugs; I25.10 Atherosclerotic heart disease of native coronary artery without angina pectoris; I27.20 Pulmonary hypertension, unspecified; Z72.0 Tobacco use; Z88.5 Allergy status to narcotic agent
CPT/HCPCS: 71045; 78452; 80048; 80053; 80306 90; 82948; 83690; 83735; 84484; 85025; 85027; 93005; 93017; A9500; C9113; G0378; G0480; J0360; J1650; J1815; J2060; J2785; J7030

== ENCOUNTER 2017-10-31 19:53 | Inpatient (IN) | payer OTHER ==
[~2017-10-31] VITALS: Ht 175.3 cm; Wt 79.9 kg
[~2017-10-31 19:53] MED LIST changes: +AMLODIPINE BESY10 MG PO; +NOVOLOG 10100 UNITS/ SC; +PANTOPRAZOLE SO40 MG PO
[2017-10-31 21:01] VITALS: BP 126/75
[2017-10-31 21:22] VITALS: BP 126/78
[2017-10-31] MEDS ORDERED: ASPIRIN81 M2 PO (22:18)
[2017-10-31] MEDS ORDERED: APRESOLINE10 MG PO (22:19)
[2017-10-31] MEDS ORDERED: AMBIEN5 MG PO (22:20)
[2017-10-31] MEDS ORDERED: GLUCOTROL5 MG PO (22:20)
[2017-11-01 07:38] VITALS: BP 118/58
[2017-11-01 15:15] VITALS: BP 128/66
[2017-11-01 16:34] VITALS: BP 153/70
[2017-11-02 08:17] VITALS: BP 136/65
[2017-11-02 08:48] LABS: CHLORIDE 112 mEq/L (99-109); POTASSIUM 4.5 mEq/L (3.7-5.4); SODIUM 140 mEq/L (136-147)
[2017-11-02 08:51] LABS: GLUCOSE 208 mg/dL (70-99)
[2017-11-02 08:54] LABS: CREATININE 1.5 mg/dL (0.6-1.3); GFR ESTIMATE (CALCULATED) 52 mL/min/ (58.99-99999); UREA NITROGEN (BUN) 26 mg/dL (9-23)
[2017-11-02] MEDS ORDERED: FOLIC ACID1 MG PO (09:12)
[2017-11-02] MEDS ORDERED: LITHIUM CARBON300 M1 PO (09:12)
[2017-11-02] MEDS ORDERED: ZYPREXA10 MG PO (09:12)
[2017-11-02] MEDS ORDERED: EFFEXOR XR150 MG PO (09:12)
[2017-11-02] MEDS ORDERED: MULTI-VITAMIN1 EAC4 PO (09:12)
[2017-11-02] MEDS ORDERED: THIAMINE HCL100 MG PO (09:12)
[2017-11-02] MEDS ORDERED: CAMPRAL333 MG PO (09:14)
[2017-11-02] MEDS ORDERED: LEVEMIR100 UNIT/2 SC (09:16)
== END 2017-11-02 13:05 | disposition home or self-care (01) | DRG 885 ==
LOC: 1WEST 19:53 → ENRESERV 19:53 → 1WEST 21:20
PROVIDERS: Family Medicine; Psychiatry & Neurology Psychiatry
DX: F33.1 Major depressive disorder, recurrent, moderate (principal); E11.649 Type 2 diabetes mellitus with hypoglycemia without coma; R45.851 Suicidal ideations; Z91.14 Patient's other noncompliance with medication regimen; F10.20 Alcohol dependence, uncomplicated; F60.0 Paranoid personality disorder; I10 Essential (primary) hypertension; Z76.5 Malingerer [conscious simulation]
CPT/HCPCS: 80048; 82948; J1815

== ENCOUNTER 2017-12-27 01:04 | Emergency (ER) | payer OTHER ==
[~2017-12-27] VITALS: Ht 175.3 cm; Wt 84.9 kg
[~2017-12-27 01:04] MED LIST changes: +AMBIEN5 MG PO; +APRESOLINE10 MG PO; +ASPIRIN81 M2 PO; +GLUCOTROL5 MG PO
[2017-12-27 01:38] LABS: HEMATOCRIT 35.4 % (38.0-50.0); HEMOGLOBIN 12.6 G/DL (12.5-16.6); MCH 32.1 PG (29.0-34.0); MCHC 35.6 G/DL (30.0-36.0); MCV 90.3 FL (86-99); PLATELET COUNT 282 K/uL (156-360); RBC DIS.WIDTH-CV 12.8 % (11.8-14.6); RBC DIS.WIDTH-SD 42.2 % (39-53); RED BLOOD COUNT 3.92 M/uL (4.00-5.50); WHITE BLOOD COUNT 6.5 K/uL (4.1-10.2)
[2017-12-27 01:51] LABS: ALBUMIN 3.8 g/dL (3.2-4.8)
[2017-12-27 01:52] LABS: CHLORIDE 109 mEq/L (99-109); POTASSIUM 4.4 mEq/L (3.7-5.4); SODIUM 144 mEq/L (136-147)
[2017-12-27 01:54] LABS: TOTAL PROTEIN 7.8 g/dL (6.4-8.3)
[2017-12-27 01:56] LABS: TOTAL BILIRUBIN 0.1 mg/dL (0.0-1.0)
[2017-12-27 01:57] LABS: SERUM ETHYL ALCOHOL 402 mg/dL
[2017-12-27 01:58] LABS: ALKALINE PHOSPHATASE 72 IU/L (3-129); CREATININE 1.5 mg/dL (0.6-1.3); GFR ESTIMATE (CALCULATED) 52 mL/min/ (58.99-99999)
[2017-12-27 01:59] LABS: AST (GOT) 28 IU/L (2-34); GLUCOSE 444 mg/dL (70-99)
[2017-12-27 02:00] LABS: UREA NITROGEN (BUN) 18 mg/dL (9-23)
[2017-12-27 02:01] LABS: ALT (GPT) 13 IU/L (3-49); SALICYLATE < 5.0 MG/DL (15-30)
[2017-12-27 02:02] LABS: ACETAMINOPHEN (TYLENOL) < 10 mcg/mL (10-30); LIPASE 80 U/L (1.0-51.0)
[2017-12-27 02:05] LABS: TROP-I INTERPRETATION NEGATIVE; TROPONIN-I 0.02 ng/mL (0.0-0.30)
[2017-12-27 12:10] LABS: APPEARANCE CLEAR ((CLEAR)); BILIRUBIN NEGATIVE; BLOOD SMALL; COLOR STRAW ((YELLOW)); GLUCOSE (STRIP) >=500; KETONES NEGATIVE; LEUKOCYTES NEGATIVE; NITRITE NEGATIVE; PROTEIN (STRIP) 100; SPECIFIC GRAVITY 1.014 (1.000-1.030); UROBILINOGEN 0.2 MG/DL (0.2-1.0)
[2017-12-27 12:14] LABS: BACTERIA NONE SEEN /HPF; EPITHELIAL CELLS RARE /HPF; MUCUS TRACE /LPF; RED BLOOD CELLS 0-5 /HPF (0-5); UCUL ADDED? NO; WHITE BLOOD CELLS 0-5 /HPF (0-5)
[2017-12-27 12:25] LABS: AMPHETAMINE NEGATIVE (500 ng/mL); BARBITURATES NEGATIVE (200 ng/mL); BENZODIAZEPINES NEGATIVE (150 ng/mL); BUPRENORPHINE NEGATIVE (10 ng/mL); COCAINE NEGATIVE (150 ng/mL); METHADONE NEGATIVE (200 ng/mL); METHAMPHETAMINE NEGATIVE (500 ng/mL); OPIATES (MORPHINE) NEGATIVE (100 ng/mL); OXYCODONE NEGATIVE (100 ng/mL); PHENCYCLIDINE NEGATIVE (25 ng/mL); PROPOXYPHENE NEGATIVE (300 ng/mL); THC CANNABINOIDS NEGATIVE (50 ng/mL); TRICYCLIC ANTIDEPRESSANTS NEGATIVE (300 ng/mL)
[2017-12-27 18:28] VITALS: BP 171/74
== END 2017-12-27 19:01 | disposition home or self-care (01) ==
LOC: EME → EDBD 01:04 → EME 01:04
PROVIDERS: Emergency Medicine
DX: T51.0X1A Toxic effect of ethanol, accidental (unintentional), initial encounter (principal); F10.129 Alcohol abuse with intoxication, unspecified; Y90.8 Blood alcohol level of 240 mg/100 ml or more; E11.65 Type 2 diabetes mellitus with hyperglycemia; E11.22 Type 2 diabetes mellitus with diabetic chronic kidney disease; N18.9 Chronic kidney disease, unspecified; I12.9 Hypertensive chronic kidney disease with stage 1 through stage 4 chronic kidney disease, or unspecified chronic kidney disease; I25.10 Atherosclerotic heart disease of native coronary artery without angina pectoris; F33.9 Major depressive disorder, recurrent, unspecified; F42.9 Obsessive-compulsive disorder, unspecified; F41.9 Anxiety disorder, unspecified; F31.9 Bipolar disorder, unspecified; G89.29 Other chronic pain; M54.9 Dorsalgia, unspecified; F17.200 Nicotine dependence, unspecified, uncomplicated; Z86.711 Personal history of pulmonary embolism; Z88.6 Allergy status to analgesic agent; Z88.5 Allergy status to narcotic agent; Z88.8 Allergy status to other drugs, medicaments and biological substances
CPT/HCPCS: 70450; 71045; 80053; 81003; 82948; 83690; 84484; 85027; 90839; 93005; 99281; 99285; G0480; J2310; J7030

== ENCOUNTER 2018-02-12 22:39 | Emergency (ER) | payer OTHER ==
[~2018-02-12] VITALS: Ht 175.3 cm; Wt 80.8 kg
[2018-02-12 23:19] LABS: BASOPHIL (%) 0.3 % (0-1); EOSINOPHIL (%) 2.4 % (0-5); EOSINOPHIL COUNT 0.1 K/uL (0-0.3); HEMATOCRIT 33.5 % (38.0-50.0); IMMATURE GRANULOCYTE (%) 0.3 % (0.0-0.7); LYMPHOCYTE (%) 35.5 % (15-42); LYMPHOCYTE COUNT 2.1 K/uL (1.0-2.8); MCH 32.2 PG (29.0-34.0); MCHC 35.8 G/DL (30.0-36.0); MCV 89.8 FL (86-99); MONOCYTE (%) 6.8 % (3-12); MONOCYTE COUNT 0.4 K/uL (0-0.8); NEUTROPHIL (%) 54.7 % (45-76); NEUTROPHIL COUNT 3.2 K/uL (1.8-6.4); PLATELET COUNT 261 K/uL (156-360); RBC DIS.WIDTH-SD 39.1 % (39-53); RED BLOOD COUNT 3.73 M/uL (4.00-5.50); WHITE BLOOD COUNT 5.9 K/uL (4.1-10.2)
[2018-02-12 23:30] LABS: ALBUMIN 3.4 g/dL (3.2-4.8); CHLORIDE 103 mEq/L (99-109); POTASSIUM 3.7 mEq/L (3.7-5.4); SODIUM 137 mEq/L (136-147)
[2018-02-12 23:32] LABS: GLUCOSE 290 mg/dL (70-99); TOTAL PROTEIN 7.1 g/dL (6.4-8.3)
[2018-02-12 23:34] LABS: TOTAL BILIRUBIN 0.1 mg/dL (0.0-1.0)
[2018-02-12 23:35] LABS: SERUM ETHYL ALCOHOL 303 mg/dL
[2018-02-12 23:36] LABS: ALKALINE PHOSPHATASE 117 IU/L (3-129); CREATININE 1.3 mg/dL (0.6-1.3); GFR ESTIMATE (CALCULATED) > 59 mL/min/ (58.99-99999)
[2018-02-12 23:37] LABS: AST (GOT) 23 IU/L (2-34); DIRECT BILIRUBIN 0.1 mg/dL (0.0-0.3)
[2018-02-12 23:38] LABS: UREA NITROGEN (BUN) 21 mg/dL (9-23)
[2018-02-12 23:39] LABS: SALICYLATE < 5.0 MG/DL (15-30)
[2018-02-12 23:40] LABS: ACETAMINOPHEN (TYLENOL) < 10 mcg/mL (10-30); ALT (GPT) 18 IU/L (3-49); LIPASE 49 U/L (1.0-51.0)
[2018-02-13 05:35] LABS: APPEARANCE CLEAR ((CLEAR)); BILIRUBIN NEGATIVE; BLOOD SMALL; COLOR STRAW ((YELLOW)); GLUCOSE (STRIP) >=500; KETONES NEGATIVE; LEUKOCYTES NEGATIVE; NITRITE NEGATIVE; PROTEIN (STRIP) 100; SPECIFIC GRAVITY 1.015 (1.000-1.030); UROBILINOGEN 0.2 MG/DL (0.2-1.0)
[2018-02-13 05:39] LABS: BACTERIA RARE /HPF; EPITHELIAL CELLS RARE /HPF; MUCUS TRACE /LPF; RED BLOOD CELLS 0-5 /HPF (0-5); UCUL ADDED? NO; WHITE BLOOD CELLS 0-5 /HPF (0-5)
[2018-02-13 05:43] LABS: AMPHETAMINE NEGATIVE (500 ng/mL); BARBITURATES NEGATIVE (200 ng/mL); BENZODIAZEPINES NEGATIVE (150 ng/mL); BUPRENORPHINE NEGATIVE (10 ng/mL); COCAINE NEGATIVE (150 ng/mL); METHADONE NEGATIVE (200 ng/mL); METHAMPHETAMINE NEGATIVE (500 ng/mL); OPIATES (MORPHINE) NEGATIVE (100 ng/mL); OXYCODONE NEGATIVE (100 ng/mL); PHENCYCLIDINE NEGATIVE (25 ng/mL); PROPOXYPHENE NEGATIVE (300 ng/mL); THC CANNABINOIDS NEGATIVE (50 ng/mL); TRICYCLIC ANTIDEPRESSANTS NEGATIVE (300 ng/mL)
[2018-02-13 05:56] VITALS: BP 104/75
== END 2018-02-13 05:57 | disposition home or self-care (01) ==
LOC: EME → EDBD 22:39 → EME 02-13 05:57
PROVIDERS: Emergency Medicine
DX: F10.129 Alcohol abuse with intoxication, unspecified (principal); E11.65 Type 2 diabetes mellitus with hyperglycemia; R94.31 Abnormal electrocardiogram [ECG] [EKG]; I10 Essential (primary) hypertension; I25.10 Atherosclerotic heart disease of native coronary artery without angina pectoris; F31.9 Bipolar disorder, unspecified; F42.9 Obsessive-compulsive disorder, unspecified; F41.9 Anxiety disorder, unspecified; F32.9 Major depressive disorder, single episode, unspecified; F44.81 Dissociative identity disorder; F17.200 Nicotine dependence, unspecified, uncomplicated; Y90.8 Blood alcohol level of 240 mg/100 ml or more; Z79.82 Long term (current) use of aspirin; Z86.711 Personal history of pulmonary embolism; Z88.5 Allergy status to narcotic agent; Z88.6 Allergy status to analgesic agent; Z88.8 Allergy status to other drugs, medicaments and biological substances
CPT/HCPCS: 70450; 80048; 80076; 81003; 82948; 83690; 85025; 85610; 85730; 93005; 99281; 99284; G0480; J7030